=== PATIENT | male | born 1985 | race African-American/Black ===

== ENCOUNTER 2022-01-03 21:27 | Emergency (ER) | payer OTHER, SELFPAY ==
[2022-01-03 21:30] VITALS: BP 158/84; PULSE 76; RESP 16; TEMP 36.6; O2SAT 100
--- NOTE | 2022-01-03 22:16 | ED.GENADULT ---
HPI - General Adult General Chief complaint: Extremity Problem,Nontraumatic Stated complaint: left leg swelling Time Seen by Provider: 01/03/22 22:05 Source: RN notes reviewed History of Present Illness HPI narrative: Patient presents emergency department from home for left leg redness. Patient states that this evening approximately 7 PM he noticed an area of erythema over the left lateral leg that was round and elevated states he had some mild itching in the leg but was concerned he could possibly developing a blood clot. He denies anything directly biting him or sting him. He states he does not recall if he possibly itched the area earlier during the day he states he has had some mild swelling around the area and the leg feels tight but denies any calf tenderness he denies any pain in the knee or any denies any chest pain or shortness of breath Related Data Allergies Allergy/AdvReac Type Severity Reaction Status Date / Time No Known Allergies Allergy Verified 01/03/22 21:32 Review of Systems Review of Systems: Gen.: Denies fevers or chills ENT: Denies congestion Respiratory: Denies shortness of breath CV: Denies chest pain Musculoskeletal: Denies back pain or muscle pain Neuro: Denies numbness, tingling, weakness or focal weakness Skin: See HPI Except as documented, all other systems reviewed and negative PMFSH Past Medical History Medical History (Updated 01/03/22 @ 23:24 by Da Avelar DO) Patient denies significant medical history Social History Social History (Updated 01/03/22 @ 22:18 by Da Avelar DO) Smoking status: Current every day smoker Exam Narrative: APPEARANCE: No acute distress, nontoxic, resting in bed EYES: EOMI HEENT: Normocephalic, atraumatic RESPIRATORY: No respiratory distress Clear to auscultation bilaterally with no rhonchi wheezing or rales. CARDIOVASCULAR: Regular rate and rhythm without murmurs rubs or gallops. MUSCULOSKELETAl: Moves all extremities. No clubbing, cyanosis or edema. No tenderness of the left knee or ankle full range of motion of both no calf tenderness, left lateral calf has a circular area of erythema with no fluctuance or drainage mild overlying excoriation dorsalis pedis pulse 2+ neurovascular intact no swelling of the calf NEURO: Awake and alert. Following commands, speech normal, no focal deficits SKIN:: Warm, dry. No rashes lesions or abrasions PSYCHIATRIC: Normal affect/mood, Course Course Emergency Course: Discussed Dr. Nuñez agrees with plan for discharge with follow-up as an outpatient ultrasound Discussed with patient results of workup and diagnosis. Discussed need for follow-up with primary care, proper use of medication, and reasons to return to the emergency department. Patient understands and agrees to current treatment plan Vital Signs Vital signs: Vital Signs Temperature 97.9 F 01/03/22 21:30 Pulse Rate 76 01/03/22 21:30 Respiratory Rate 16 01/03/22 21:30 Blood Pressure 158/84 H 01/03/22 21:30 Pulse Oximetry 100 01/03/22 21:30 Temperature 97.9 F 01/03/22 21:30 Pulse Rate 76 01/03/22 21:30 Respiratory Rate 16 01/03/22 21:30 Blood Pressure 158/84 H 01/03/22 21:30 Pulse Oximetry 100 01/03/22 21:30 Medical Decision Making [facility] Narrative Medical decision making narrative: Patient with area of erythema over the left side of the calf concern possible blood clot patient's only risk factor is tobacco use there is a circular area of erythema looks more consistent with a bug bite or localized infection there is no calf pain and there is no swelling D-dimer is negative at this time it is night and there is no ultrasound present plan to treat the patient with antibiotics I did discuss with the patient we will order an a.m. ultrasound but as patient is still low risk I feel this is likely more localized infection I will hold on giving Lovenox Vital Signs Vital Signs: Vital Signs Temperature 97.9 F 01/03/22 2
[2022-01-03 22:36] LABS: Basophils Percent Auto 0.2 % (0.2-1.2); Eosinophils Absolute Auto 0.2 K/mm3 (0-0.3); Eosinophils Percent Auto 4.2 % (0-4.4); Hematocrit 41.2 % (42.0-52.0); Hemoglobin 14.1 g/dL (14.0-18.0); Lymphocytes Absolute Auto 1.68 K/mm3 (0.9-3.2); Lymphocytes Percent Auto 36.9 % (18.3-44.2); Mean Corpuscular HGB Conc 34.2 g/dl (32-36); Mean Corpuscular Hemoglobin 32.2 pg (26-34); Mean Corpuscular Volume 94.1 fl (80-100); Mean Platelet Volume 11.2 fl (7.4-10.4); Monocytes Absolute Auto 0.4 K/mm3 (0.1-0.6); Monocytes Percent Auto 9.5 % (2.6-8.5); Neutrophils Absolute Auto 2.2 K/mm3 (1.3-6.7); Neutrophils Percent Auto 49.2 % (45.5-73.1); Platelet Count Result 177 k/mm3 (150-375); Red Blood Count 4.38 M/mm3 (4.6-6.20); Red Cell Distribution Width 12.9 % (11.5-14.5); White Blood Count 4.6 K/mm3 (4.5-10.0)
[2022-01-03] MEDS: diphenhydrAMINE HCl CAP 25 MG CAPSULE PO (22:41)
[2022-01-03 22:45] LABS: Alanine Aminotransferase 42 U/L (6-50); Albumin Level 4.3 g/dL (3.5-5.1); Alkaline Phosphatase 46 U/L (38-126); Anion Gap 9 mmol/L (8-16); Aspartate Amino Transferase 38 U/L (17-59); Bilirubin,Total 0.2 mg/dL (0.2-1.3); Blood Urea Nitrogen 12 mg/dL (9-20); Calcium 8.9 mg/dL (8.4-10.2); Carbon Dioxide 24 mmol/L (22-30); Chloride 106 mmol/L (98-107); Estimated CRCL calculation 130 ml/min; Estimated Glomerular Filt Rate > 60; Glucose 79 mg/dL (65-110); Potassium 3.6 mmol/L (3.4-5.0); Sodium 139 mmol/L (137-145)
[2022-01-03 22:51] LABS: Prothrombin Time 12.8 Seconds (11.1-14.7)
[2022-01-03 22:52] LABS: Partial Thromboplastin Time 26.3 SECONDS (22.3-36.8)
[2022-01-03 22:55] LABS: D Dimer < 0.22 ug/mL (<0.48)
[2022-01-03] MEDS: CEPHALEXIN 500 MG CAPSULE PO (23:38)
== END 2022-01-03 23:35 | disposition home or self-care (01) ==
PROVIDERS: Emergency Provider Emergency Medicine
DX: L03.116 Cellulitis of left lower limb (principal); F17.200 Nicotine dependence, unspecified, uncomplicated
CPT/HCPCS: 36415; 80053; 85025; 85380; 85610; 85730; 99283; A9270

== ENCOUNTER 2022-01-04 07:11 | Outpatient (CLI) | payer OTHER, SELFPAY ==
--- NOTE | ~2022-01-04 | US_ITS ---
EXAMINATION: US venous doppler [facility] DATE: 01/04/2022 08:03 INDICATION: Left lower limb swelling TECHNIQUE: Aldana scale images without and with compression and Doppler images of the left lower extrem ity veins were obtained. COMPARISON: None FINDINGS: The left common femoral vein, profunda femoral vein, femoral vein, popliteal vein, peroneal trunk, posterior tibial veins, and greater saphenous vein are patent. IMPRESSION: 1. Patent left lower extremity veins. No evidence of deep venous thrombosis. Reviewed, dictated and finalized at location A.
== END 2022-01-04 07:12 | disposition home or self-care (01) ==
PROVIDERS: Visit Provider Emergency Medicine
DX: L03.116 Cellulitis of left lower limb (principal)
CPT/HCPCS: 93971